=== PATIENT | male | born 1960 | race Caucasian/White ===

== ENCOUNTER 2017-01-31 11:51 | Emergency (ER) | payer OTHER ==
--- NOTE | ~2017-01-31 | CR72 ---
[facility] A Service of [facility] RADIOLOGY TEXT RESULTS PATIENT: FIDEL SANCHEZ LOCATION: SED : 64 UNIT #: [id number] AGE: [address]: Maykel Peters MD SEX: M ORDER DR: [id number] [place] [id number] MR#: [id number] Acc #: [id number] NAME: FIDEL SANCHEZ : 1960 SEX: M STUDY DATE/TIME: 01/31/2017 12:20 UNIT: SED ROOM: STUDY DESCRIPTION: CR Chest Single View Portable Attending Physician: Maykel Peters M.D. Ordering Physician: Maykel Peters M.D. Primary Care Physician: Corrine Sen M.D. MEDICAL IMAGING REPORT This report is preliminary unless electronic signature is present. EXAM Chest, portable, 01/31/2017, 1220 hours. CLINICAL HISTORY 56-year-old man with complaint of chest pressure anteriorly with shortness of air today. Elevated blood pressure today. COMPARISON None FINDINGS Single, portable, upright view demonstrates normal heart size. The aorta is minimally tortuous. There is no mediastinal widening. The pulmonary vascularity is normal. The lungs are clear and there are no effusions. IMPRESSION 1. Heart size within normal limits with minimally tortuous aorta. Hilar contour is normal. 2. The lungs are clear and there is no pleural fluid or pneumothorax. Dictated by... Julissa Wagner M.D. THIS IS AN ELECTRONICALLY VERIFIED REPORT Julissa Wagner M.D. at 02/01/2017 9:30 AM [place]/sunil TD: 01/31/2017 15:24 JOB #: [id number] [facility] A Service [facility] RADIOLOGY TEXT RESULTS PATIENT: FIDEL SANCHEZ LOCATION: SED : 64 UNIT #: [id number] AGE: [address]: Maykel Peters MD SEX: M ORDER DR: MEDICAL IMAGING REPORT Page 1 of 1
--- NOTE | ~2017-01-31 | EKG ---
PATIENT: FIDEL SANCHEZ UNIT #: [id number] Ventricular Rate: 88 BPM Atrial Rate: 88 BPM P-R Interval: 158 ms QRS Duration: 92 ms Q-T Interval: 368 ms QTC Calculation(Bezet): 445 ms P [place]: 43 degrees Calculated R [place]: 6 degrees Calculated T [place]: 53 degrees Diagnosis Line: Normal sinus rhythm Diagnosis Line: Low voltage QRS Diagnosis Line: Poor R wave progression questionable lead position Diagnosis Line: or body habitus Otherwise normal ECG Diagnosis Line: No previous ECGs available Diagnosis Line: Confirmed by ANGELINA ALLEN MD ([id number]) on 02/01/2017 Diagnosis Line: 5:50:47 PM INTERPRETING MD: TIFFANY MILLER
[~2017-01-31 11:51] MED LIST: AMLODIPINE-BEN1 EAC1 PO; OMEPRAZOLE20 M2
[2017-01-31] MEDS ORDERED: WATER PILL (11:54)
[2017-01-31] MEDS ORDERED: CHOLESTEROL MED (11:54)
[2017-01-31 12:46] LABS: BASOPHIL# 0.1 X10e3 (0-0.3); BASOPHIL% 0.6 % (0-2.5); EOSINOPHIL# 0.2 X10e3 (0-0.7); EOSINOPHIL% 1.6 % (0.0-7.0); HEMATOCRIT 44.5 % (38.0-50.0); HEMOGLOBIN 15.2 gm/dL (13.0-16.0); LYMPHOCYTE# 2.7 X10e3 (1.0-3.5); LYMPHOCYTE% 21.3 % (17.0-45.0); MEAN CELL VOLUME 85.9 FL (83-96); MEAN CORPUSCULAR HEMOGLOBIN 29.3 PG (28-34); MEAN CORPUSCULAR HGB CONC 34.1 g/dL (30-36); MEAN PLATELET VOLUME 7.7 FL (6.5-11.5); MONOCYTE# 1.1 X10e3 (0-1.0); MONOCYTE% 8.8 % (3.0-12.0); NEUTROPHIL# 8.5 X10e3 (1.5-7.1); NEUTROPHIL% 67.7 % (40-75); PLATELET COUNT 212 X10e3 (140-420); RED BLOOD COUNT 5.18 X10e (3.90-5.60); RED CELL DISTRIBUTION WIDTH 13.2 % (11.0-15.5); WHITE BLOOD COUNT 12.6 X10e3 (4.0-10.5)
[2017-01-31 12:48] LABS: DIFF IND NO
[2017-01-31 12:55] LABS: POC - CKMB <1.0 ng/mL (0.0-7.9); POC - TROPONIN <0.05 ng/mL (<=0.05)
[2017-01-31 13:05] LABS: PROTHROMBIN TIME (PATIENT) 11.5 SECONDS (9.5-12.4)
[2017-01-31 13:16] LABS: ALBUMIN SERUM 4.4 g/dL (3.5-5.0); BILIRUBIN, DIRECT 0.2 mg/dL (0.0-0.2); BILIRUBIN,INDIRECT 0.9 mg/dL (0.0-0.9); BILIRUBIN,TOTAL 1.1 mg/dL (0.2-2.0); BUN/CREATININE RATIO 15.55; CALCIUM SERUM 9.3 mg/dL (8.4-10.2); CREATININE SERUM 0.9 mg/dL (0.6-1.4); GLOM FILT RATE Estimated 96.5 mL/min (>60); MAGNESIUM 1.7 mg/dL (1.6-3.0); POTASSIUM 4.4 mmol/L (3.5-5.1); PROTEIN TOTAL SERUM 6.9 g/dL (6.0-8.3)
[2017-01-31 13:23] LABS: PARTIAL THROMBOPLASTIN TIME 32.3 SECONDS (25.6-38.1)
[2017-01-31 14:30] LABS: POC - CKMB <1.0 ng/mL (0.0-7.9); POC - TROPONIN <0.05 ng/mL (<=0.05)
== END 2017-01-31 17:19 ==
LOC: SED 11:51
PROVIDERS: Emergency Medicine
DX: R07.89 Other chest pain (principal); I10 Essential (primary) hypertension; E78.5 Hyperlipidemia, unspecified; E66.9 Obesity, unspecified; Z87.891 Personal history of nicotine dependence; Z88.2 Allergy status to sulfonamides; Z88.1 Allergy status to other antibiotic agents
CPT/HCPCS: 36415; 71010; 80048; 80076; 82553; 83735; 83880; 84484; 85025; 85610; 85730; 99285